=== PATIENT | female | born 2000 | race Caucasian/White ===

== ENCOUNTER 2020-08-21 15:48 | Outpatient (RCR) | payer OTHER, SELFPAY ==
[2019-07-15 08:11] VITALS: BMI 26.5
== END 2020-09-25 23:59 ==
LOC: IMMUN 15:48
PROVIDERS: PCP Pediatrics; Referring Provider Family Medicine; Visit Provider Family Medicine
DX: Z23 Encounter for immunization (principal)
CPT/HCPCS: 0001A; 91300

== ENCOUNTER 2022-08-15 01:42 | Emergency (ER) | payer BC, SELFPAY ==
[2022-08-15 01:43] VITALS: BP 131/95; PULSE 84; RESP 15; TEMP 37.1; O2SAT 98; BMI 28.8
[2022-08-15] MEDS: Ipratropium/Albuterol Sulfate 3 ML AMPUL.NEB INHALATION (02:48)
[2022-08-15] MEDS: dexAMETHasone 10 MG/ML Vial PO.IVFORM (02:48)
[2022-08-15 02:53] VITALS: PULSE 86; RESP 16
[2022-08-15 03:08] VITALS: O2SAT 99
[2022-08-15 03:17] VITALS: BP 133/87; RESP 15; O2SAT 99
--- NOTE | 2022-08-15 03:29 | EX.ED.DYSGE1 ---
HPI History of Present Illness Chief Complaint: Shortness of Breath Narrative Narrative: Patient is a 21-year-old female with no significant past medical history who states that she began feeling short of breath today. She states that he feels like it is difficult to get a deep breath in. She denies any history of lung disorder such as asthma or smoking or vaping. She denies any new exposures. She denies any recent travel surgery or history of DVT/PE but with the persistent difficulty breathing comes in for evaluation. PFSH PFSH Medical History no medical history Home Medications levonorgestrel-ethinyl estradiol 0.1 mg-20 mcg tablet (Falmina (28)) 1 tab PO DAILY #84 tabs 07/15/19 [Rx Last Taken Unknown] multivitamin 1 tab PO DAILY 07/15/19 [History Last Taken Unknown] albuterol sulfate 90 mcg/actuation aerosol inhaler (Ventolin HFA) 2 puff inhalation Q4H PRN PRN Wheezing #1 device 08/15/22 [Rx Last Taken Unknown] prednisone 20 mg tablet 40 mg PO DAILY 5 days #10 tabs 08/15/22 [Rx Last Taken Unknown] Allergy/AdvReac Type Severity Reaction Status Date / Time No Known Allergies Allergy Verified 07/15/19 08:11 Family History Mother Cancer melanoma Surgical History no surgical history Social History (Updated 07/15/19 @ 08:[address] Estela Bernardo MD) Smoking Status: Never smoker alcohol intake: never substance use type: does not use caffeine: Yes what type of physical activity do you participate in: walking seatbelt use: always do you feel safe at home: Yes additional social history: [facility] ED Constitutional Constitutional ED: Denies chills or fever(s) ENT ENT ED: Denies rhinorrhea or sore throat Cardiovascular Cardiovascular: Denies chest pain Respiratory/Chest Respiratory/Chest: Reports dyspnea; Denies cough Gastrointestinal Gastrointestinal: Denies abdominal pain, diarrhea, nausea or vomiting Genitourinary Genitourinary ED: Denies dysuria Musculoskeletal Musculoskeletal: Denies myalgias Integumentary Denies rash Neurologic Neurologic: Denies headache(s) Hematologic/Lymphatic Hematologic/Lymphatic: Denies easy bleeding or easy bruising EXAM Physical Exam Const Vital Signs: 08/15/22 01:43 08/15/22 02:53 08/15/22 03:08 Temperature 98.8 F Temperature Source Oral Pulse Rate 84 86 Respiratory Rate 15 16 Respiratory Effort Short of Breath Respiratory Depth Normal Respiratory Pattern Normal Normal Blood Pressure 131/95 H Blood Pressure Mean 107 Pulse Ox 98 Oxygen Delivery Method Room Air Room Air 08/15/22 03:17 Temperature Temperature Source Pulse Rate Respiratory Rate 15 Respiratory Effort Respiratory Depth Respiratory Pattern Blood Pressure 133/87 H Blood Pressure Mean 102 Pulse Ox 99 Oxygen Delivery Method Room Air Positive well nourished and well developed General Appearance ED: well developed HEENT Reports moist mucous membranes HEENT Narrative: No tongue or lip swelling no oral lesions no airway edema or compromise Eyes PERRL and EOMs intact bilaterally Neck supple and no JVD Neck Narrative: No crepitance palpated Resp normal respiratory effort Resp Narrative: Breath sounds are diminished throughout with faint wheeze in the bilateral lower lobes without nasal flaring retractions tachypnea or accessory muscle use Cardio regular rate and regular rhythm Extremity normal to inspection Extremity Narrative: No asymmetric edema no pitting edema negative Homans' sign bilaterally Neuro oriented x3 and CN's II-XII intact bilaterally Sensorium / Orientation: alert Psych mental status grossly normal Skin no rashes or lesions noted MDM MDM MDM Narrative Medical decision making narrative: Patient presented to the ER satting 98 to 100% on room air. She denied any recent travel surgery or history of DVT/PE and had no pain with inspiration. She is also not tachycardic and therefore my concern for PE is low and do not feel there is a need for a CTA or D-dimer. Patient had wheezing on exam and reported difficulty taking a deep breath in which to be most consistent with bronchospasm. She was given a DuoNeb breathing treatment as well as Decadron and on reevaluation had improvement of breath sounds and reported resolution of her shortness of breath sensation. Therefore at this time as her history and exam indicates she most likely had bronchospasm but she is not hypoxic or having increased respiratory distress and there is no overt signs of infection there is no need for further work-up and he is otherwise safe for discharge. History & Record Review Discussion w/independent historian: Patient and Friend Discharge Plan Triage Chief Complaint: Shortness of Breath ED Provider: Eb Perez Dx/Rx/DC Orders Clinical Impression: Acute bronchospasm, Dyspnea Instructions: ED Bronchospasm (Adult) Prescriptions: New prednisone 20 mg tablet 40 mg PO DAILY 5 Days Qty: 10 0RF albuterol sulfate [Ventolin HFA] 90 mcg/actuation HFA aerosol inhaler 2 puff inhalation Q4H PRN PRN (Reason: Wheezing) Qty: 1 1RF No Action multivitamin Tablet 1 tab PO DAILY levonorgestrel-ethinyl estrad [Falmina (28)] 0.1-20 mg-mcg tablet 1 tab PO DAILY Qty: 84 4RF Stand Alone Forms: ED Work / School Excuse Primary Care Provider: Care Physician,No Primary Referrals: Toby Robert MD [Med Staff - Active Staff] - Care Physician,No Primary [Primary Care Provider] - Disposition Disposition: Home, Self Care Discharge Date/Time: 08/15/22 03:53
== END 2022-08-15 03:53 | disposition home or self-care (01) ==
PROVIDERS: Emergency Provider Emergency Medicine; Visit Provider Emergency Medicine
DX: J98.01 Acute bronchospasm (principal); R06.00 Dyspnea, unspecified
CPT/HCPCS: 94640; 99282

== ENCOUNTER → 2023-02-07 | Outpatient (CLI) | payer BC, SELFPAY ==
[2023-02-09 22:06] LABS: Chlamydia By Nucleic Acid AMP Negative (Negative); Gonococcus By Nucleic Acid AMP Negative (Negative)
[2023-02-12 23:18] LABS: HPV Reflexed? NOT INDICATED
== END | disposition home or self-care (01) ==
LOC: LABSPEC 14:02
PROVIDERS: Referring Provider Nurse Practitioner Women's Health; Visit Provider Nurse Practitioner Women's Health
DX: Z11.3 Encounter for screening for infections with a predominantly sexual mode of transmission (principal)
CPT/HCPCS: 87491; 87591; 88175; G0145

== ENCOUNTER 2023-06-05 18:01 | Emergency (ER) | payer BC, SELFPAY ==
[2023-06-05 18:02] VITALS: BP 132/86; PULSE 77; PULSE 79; RESP 16; TEMP 36.9; O2SAT 100; BMI 25.1
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
[2023-06-05 20:09] VITALS: BP 132/86; PULSE 79; RESP 16; TEMP 36.9; O2SAT 100
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
== END 2023-06-05 20:10 | disposition home or self-care (01) ==
PROVIDERS: Emergency Provider Student in an Organized Health Care Education/Training Program; Visit Provider Student in an Organized Health Care Education/Training Program
DX: S60.221A Contusion of right hand, initial encounter (principal); S60.222A Contusion of left hand, initial encounter; S46.912A Strain of unspecified muscle, fascia and tendon at shoulder and upper arm level, left arm, initial encounter; S73.102A Unspecified sprain of left hip, initial encounter; V49.40XA Driver injured in collision with unspecified motor vehicles in traffic accident, initial encounter
CPT/HCPCS: 73030; 73130; 73502; 99283